=== PATIENT | male | born 1965 | race Caucasian/White ===

== ENCOUNTER 2017-10-31 15:16 | Emergency (ER) | payer BC, OTHER ==
[2017-10-31 15:32] VITALS: BP 136/77
--- NOTE | 2017-10-31 16:07 | UC ---
Skin Complaint HPI - HPI Summary HPI Summary: 52 yo male presents with rash to upper back since yesterday. He tells me that he was lying down on a piece of cardboard working under his car at home and noticed he was lying on a caterpillar - he brushed it off. Soon after developed a rash to his upper back. Rash has persisted to today and is very itchy, but is not burning as much today as it was yesterday. He denies SOB or difficulty breathing. - History of Current Complaint Chief Complaint: UCSkin Time Seen by Provider: 10/31/17 16:07 Stated Complaint: RASH Hx Obtained From: Patient Onset/Duration: Sudden Onset Current Severity: None Pain Intensity: 0 - Allergy/Home Medications Allergies/Adverse Reactions: Allergies Allergy/AdvReac Type Severity Reaction Status Date / Time No Known Allergies Allergy Verified 10/31/17 15:32 Review of Systems Constitutional: Negative Skin: Rash Eyes: Negative ENT: Negative Respiratory: Negative Cardiovascular: Negative Gastrointestinal: Negative Neurovascular: Negative Neurological: Negative Psychological: Negative All Other Systems Reviewed And Are Negative: Yes PMH/Surg Hx/FS Hx/Imm Hx - Additional Past Medical History Additional PMH: None - Surgical History Surgical History: Yes Surgery Procedure, Year, and Place: Rt knee arthroscopy - Family History Known Family History: Positive: None - Social History Occupation: Employed Full-time Lives: With Family Alcohol Use: Occasionally Substance Use Type: None Smoking Status (MU): Former Smoker Type: Smokeless Tobacco Amount Used/How Often: 6 little pouches per day Length of Time of Smoking/Using Tobacco: 30 years Have You Smoked in the Last Year: No Household Exposure Type: Cigarettes - Immunization History Most Recent Tetanus Shot: Unknown Physical Exam - Summary Physical Exam Summary: GENERAL: NAD. WDWN. No pain distress. SKIN: Diffuse urticaria to upper back. No open sores, drainage, streaking. NECK: Supple. Nontender. No lymphadenopathy. CHEST: No accessory muscle use. Breathing comfortably and in no distress. CV: Pulses intact. Cap refill <2seconds NEURO: Alert. PSYCH: Age appropriate behavior. Triage Information Reviewed: Yes Vital Signs: Initial Vital Signs Temp 98.7 F 10/31/17 15:28 Pulse 69 10/31/17 15:28 Resp 16 10/31/17 15:28 BP 136/77 09/17/18 15:28 Pulse Ox 99 10/31/17 15:28 Vital Signs Reviewed: Yes Course/Dx - Course Course Of Treatment: caterpillar dermatitis to upper back - Diagnoses Provider Diagnoses: caterpillar dermatitis Discharge - Sign-Out/Discharge Documenting (check all that apply): Patient Departure All imaging exams completed and their final reports reviewed: No Studies - Discharge Plan Condition: Stable Disposition: HOME Prescriptions: Triamcinolone 0.1% CREAM(NF) [Kenalog Cream 0.1%(NF)] 1 applic TOPICAL BID #1 tube Patient Education Materials: Contact Dermatitis (ED) Referrals: No Primary Care Phys,NOPCP [Primary Care Provider] - Additional Instructions: If you develop a fever, shortness of breath, chest pain, new or worsening symptoms - please call your PCP or go to the ED. Your blood pressure was mildly elevated at todays visit. Please see your primary provider within 4 weeks for recheck and re-evaluation. - Billing Disposition and Condition Condition: STABLE Disposition: Home - Attestation Statements Provider Attestation: I was available for consult. This patient was seen by the ENRIQUETA. The patient was not presented to, seen by, or examined by me. -Elier
== END 2017-10-31 16:25 | disposition home or self-care (01) ==
LOC: UCEAST 15:16
CPT/HCPCS: 99202; G0463